=== PATIENT | female | born 1925 | race Caucasian/White ===

== ENCOUNTER 2016-10-03 16:26 | Emergency (ER) | payer MEDICARE, OTHER ==
[~2016-10-03] VITALS: Ht 152.4 cm; Wt 45.0 kg
[~2016-10-03 16:26] MED LIST: ADVIL200 MG OR; ARICEPT10 MG OR; ATIVAN0.5 MG PO; BACTRIM DS1 TAB OR; DARVOCET N-100100 - OR; DILTIAZEM180 M1 OR; DILTIAZEM180 M1 PO; DILTIAZEM180 MG PO; DONEPEZIL10 MG PO; FISH OIL1000 MG OR; FISH OIL1000 MG PO; FLAX SEED1000 MG OR; FLEXERIL OR; HYDROCHLOROT12.5 MG OR; HYDROCODONE/IBU1 TAB OR; LISINOPRIL2.5 MG OR; LORTAB5 PO; MAALOX ADV1 CHW OR; MAALOX OR; METROGEL1 % EX; NEXIUM40 M1 OR; NORCO1 TA2 OR; TRAZODONE50 MG PO; VICOPROFEN OR; VITAMIN D31000 UNI1 OR; ZANTAC150 M1 OR; ZANTAC150 MG OR
[2016-10-03] MEDS ORDERED: CALCIUM + D3 601 TAB PO (16:32)
[2016-10-03] MEDS ORDERED: DEPAKOTE ER500 MG PO (16:33)
[2016-10-03] MEDS ORDERED: LEXAPRO10 MG PO (16:35)
[2016-10-03] MEDS ORDERED: FAMOTIDINE20 M1 PO (16:35)
[2016-10-03] MEDS ORDERED: APAP325 MG PO (16:36)
[2016-10-03] MEDS ORDERED: NORCO1 TA1 PO (16:37)
[2016-10-03] MEDS ORDERED: PROLIA60 MG/ML SC (16:38)
[2016-10-03] MEDS ORDERED: TRAZODONE50 MG PO (16:39)
[2016-10-03 19:25] VITALS: BP 142/69
== END 2016-10-03 19:30 ==
LOC: ED 16:26
PROC: 0HQ1XZZ Repair Face Skin, External Approach (ICD-10-PCS; principal; 2016-10-03)
DX: S01.81XA Laceration without foreign body of other part of head, initial encounter (principal); M19.90 Unspecified osteoarthritis, unspecified site; K21.9 Gastro-esophageal reflux disease without esophagitis; I10 Essential (primary) hypertension; I48.91 Unspecified atrial fibrillation; W05.0XXA Fall from non-moving wheelchair, initial encounter; Y92.129 Unspecified place in nursing home as the place of occurrence of the external cause